=== PATIENT | female | born 1985 | race Caucasian/White ===

== ENCOUNTER 2017-02-11 12:22 | Inpatient (IN) | payer OTHER ==
[~2017-02-11] VITALS: Ht 165.1 cm; Wt 88.5 kg
[2017-02-11 15:42] LABS: HEMOGLOBIN 13.6 gm/dl (12.3-15.3); RED BLOOD COUNT 4.4 M/UL (4.00-5.10); WHITE BLOOD COUNT 11.4 K/UL (4.5-11.0)
[2017-02-12 03:46] LABS: HEMOGLOBIN 11.2 gm/dl (12.3-15.3)
[2017-02-13] MEDS ORDERED: COLACE 100MG C100 MG PO (11:57)
== END 2017-02-13 14:37 | disposition home or self-care (01) | DRG 766 ==
LOC: GENOP 12:22 → OB 15:21
PROVIDERS: ADMIT Obstetrics & Gynecology
PROC: 10D00Z1 Extraction of Products of Conception, Low, Open Approach (ICD-10-PCS; principal; 2017-02-11 15:58)
DX: O34.211 Maternal care for low transverse scar from previous cesarean delivery (principal); N85.8 Other specified noninflammatory disorders of uterus; Z3A.37 37 weeks gestation of pregnancy; Z37.0 Single live birth; O99.824 Streptococcus B carrier state complicating childbirth; Z91.018 Allergy to other foods; Z88.3 Allergy status to other anti-infective agents; Z88.1 Allergy status to other antibiotic agents; Z88.0 Allergy status to penicillin; L81.8 Other specified disorders of pigmentation; F41.8 Other specified anxiety disorders; Z81.8 Family history of other mental and behavioral disorders
CPT/HCPCS: 36415; 81001; 82800; 85014; 85018; 85025; C9113; J1200; J1580; J2274; J2405; J2590; J2765; J3010; J3430